=== PATIENT | female | born 1995 | race Two or more races ===

== ENCOUNTER 2020-04-26 08:00 | Outpatient (CLI) | payer OTHER | END 2020-04-26 15:00 | disposition home or self-care (01) | LOC: PPH VACUNA 08:00 | DX: Z23 Encounter for immunization (principal) ==

== ENCOUNTER 2020-07-26 13:45 | Outpatient (CLI) | payer OTHER | END 2020-07-26 18:00 | disposition home or self-care (01) | LOC: PPH VACUNA 13:45 | DX: Z23 Encounter for immunization (principal) ==

== ENCOUNTER 2021-05-09 09:02 | Outpatient (CLI) | payer OTHER | END 2021-05-09 10:02 | disposition home or self-care (01) | LOC: PPH VACUNA 09:02 | PROVIDERS: ATTEND Emergency Medicine Pediatric Emergency Medicine | DX: Z23 Encounter for immunization (principal) ==

== ENCOUNTER 2021-05-16 06:38 | Outpatient (CLI) | payer OTHER | END 2021-05-16 06:56 | disposition home or self-care (01) | LOC: LAB 06:38 | PROVIDERS: ATTEND General Practice | DX: E78.49 Other hyperlipidemia (principal); N39.0 Urinary tract infection, site not specified; Z00.00 Encounter for general adult medical examination without abnormal findings; E55.9 Vitamin D deficiency, unspecified ==